=== PATIENT | female | born 1980 | race African-American/Black ===

== ENCOUNTER 2020-06-03 21:34 | Emergency (ER) | payer OTHER, MEDICAID ==
[~2020-06-03] VITALS: Ht 170.2 cm; Wt 69.0 kg
[2020-06-03 23:26] VITALS: BP 132/89
== END 2020-06-03 23:26 | disposition home or self-care (01) ==
LOC: M.ERS 21:34
DX: Z20.828 Contact with and (suspected) exposure to other viral communicable diseases (principal); Z98.890 Other specified postprocedural states; Z88.8 Allergy status to other drugs, medicaments and biological substances

== ENCOUNTER 2020-06-15 18:32 | Emergency (ER) | payer OTHER, MEDICAID ==
[~2020-06-15] VITALS: Ht 167.6 cm; Wt 73.5 kg
[2020-06-15 19:33] VITALS: BP 113/77
== END 2020-06-15 19:34 | disposition home or self-care (01) ==
LOC: M.ERS 18:32
DX: Z20.828 Contact with and (suspected) exposure to other viral communicable diseases (principal); Z98.890 Other specified postprocedural states; Z88.8 Allergy status to other drugs, medicaments and biological substances

== ENCOUNTER 2021-03-07 21:43 | Emergency (ER) | payer OTHER, MEDICAID ==
[~2021-03-07] VITALS: Ht 167.6 cm; Wt 67.6 kg
[2021-03-07 22:55] LABS: URINE BILIRUBIN NEGATIVE (Negative); URINE BLOOD 2+ (Negative); URINE COLOR YELLOW; URINE GLUCOSE-RANDOM NEGATIVE (Negative); URINE KETONES NEGATIVE (Negative); URINE LEUKOCYTES-REFLEX NEGATIVE (Negative); URINE NITRITE-REFLEX NEGATIVE (Negative); URINE PROTEIN NEGATIVE (Negative); URINE SPECIFIC GRAVITY 1.025 (1.005-1.030)
[2021-03-07 23:02] LABS: URINE CLARITY SL HAZY
[2021-03-07 23:05] LABS: BACTERIA-REFLEX >30 Many /HPF (None Seen); CASTS None Seen /LPF (None Seen); CRYSTALS None Seen /LPF (None Seen); MUCUS 4-6 Moderate strn/LPF (None Seen); SQUAMOUS 4-10 Moderate /LPF (0-3); TRANSITIONAL EPITHEL CELL 0-3 Few /LPF (None Seen); URINE WBC-REFLEX None Seen /HPF (0-5)
[2021-03-07] MEDS ORDERED: CEPHALEXIN500 MG PO (23:22)
[2021-03-07] MEDS ORDERED: PYRIDIUM200 MG PO (23:24)
[2021-03-07 23:31] VITALS: BP 131/70
== END 2021-03-07 23:32 | disposition home or self-care (01) ==
LOC: M.ERS 21:43
PROVIDERS: Personal Emergency Response Attendant
DX: N39.0 Urinary tract infection, site not specified (principal); Z20.822 Contact with and (suspected) exposure to COVID-19; Z98.890 Other specified postprocedural states; Z88.8 Allergy status to other drugs, medicaments and biological substances

== ENCOUNTER 2021-07-13 13:19 | Emergency (ER) | payer OTHER, MEDICAID ==
[~2021-07-13] VITALS: Ht 167.6 cm; Wt 68.0 kg
[~2021-07-13 13:19] MED LIST: CEPHALEXIN500 MG PO; PYRIDIUM200 MG PO
[2021-07-13 13:55] LABS: INFLUENZA A ANTIGEN Negative (Negative); INFLUENZA B ANTIGEN Negative (Negative)
[2021-07-13 15:48] VITALS: BP 138/86
== END 2021-07-13 15:48 | disposition left against medical advice (07) ==
LOC: M.ERS 13:19
PROVIDERS: Physician Assistant
DX: R05.9 Cough, unspecified (principal); Z20.822 Contact with and (suspected) exposure to COVID-19; R50.9 Fever, unspecified; Z53.21 Procedure and treatment not carried out due to patient leaving prior to being seen by health care provider